=== PATIENT | female | born 1950 | race Caucasian/White ===

== ENCOUNTER 2016-11-03 09:17 | Outpatient (CLI) | payer BC ==
[2016-11-03 14:28] LABS: BASOPHILS # (AUTO) 0.1 10^3/uL (0.0-0.1); BASOPHILS % (AUTO) 0.7 %; EOSINOPHILS # (AUTO) 0.3 10^3/uL (0.0-0.7); EOSINOPHILS % (AUTO) 2.6 %; HCT - HEMATOCRIT 41.4 % (37.0-47.0); HGB - HEMOGLOBIN 12.9 g/dL (12.0-16.0); LYMPHOCYTES # (AUTO) 2.6 10^3/uL (1.5-3.5); LYMPHOCYTES % (AUTO) 22.5 %; MEAN CORPUSCULAR HEMOGLOBIN 23.2 pg (27.0-31.0); MEAN CORPUSCULAR HGB CONC 31.1 g/dL (32.0-36.0); MEAN CORPUSCULAR VOLUME 74.5 fL (81.0-99.0); MEAN PLATELET VOLUME 8.7 fL (7.9-10.8); MONOCYTES # (AUTO) 0.8 10^3/uL (0.0-1.0); MONOCYTES % (AUTO) 6.6 %; NEUTROPHILS # (AUTO) 7.7 10^3/uL (1.5-6.6); NEUTROPHILS % (AUTO) 67.6 %; RED BLOOD COUNT 5.56 10^6/uL (4.20-5.40); RED CELL DISTRIBUTION WIDTH 17.8 % (12.0-15.0); UNCORRECTED WHITE BLOOD COUNT 11.5 x10^3/uL; WHITE BLOOD COUNT 11.5 x10^3/uL (4.8-10.8)
[2016-11-03 14:48] LABS: ALBUMIN/GLOBULIN RATIO 1.1 (1.0-2.2); BILIRUBIN,TOTAL 0.4 mg/dL (0.2-1.0); CALCIUM 9.3 mg/dL (8.5-10.3); CREATININE 0.8 mg/dL (0.4-1.0); POTASSIUM 4.4 mmol/L (3.5-5.0); TOTAL PROTEIN 7.8 g/dL (6.7-8.2)
[2016-11-03 15:22] LABS: HEMOGLOBIN A1C 0.61 g/dL
== END 2016-11-03 09:18 | disposition home or self-care (01) ==
LOC: LAB.WCP 09:17
PROVIDERS: ATTEND Family Medicine
DX: E11.9 Type 2 diabetes mellitus without complications (principal); D47.3 Essential (hemorrhagic) thrombocythemia
CPT/HCPCS: 36415; 80053; 83036; 85025

== ENCOUNTER 2017-06-29 08:00 | Outpatient (CLI) | payer MEDICARE, BC ==
[2017-06-29 13:25] LABS: BASOPHILS # (AUTO) 0.1 10^3/uL (0.0-0.1); BASOPHILS % (AUTO) 0.7 %; EOSINOPHILS # (AUTO) 0.3 10^3/uL (0.0-0.7); EOSINOPHILS % (AUTO) 2.7 %; HGB - HEMOGLOBIN 11.6 g/dL (12.0-16.0); LYMPHOCYTES # (AUTO) 2.3 10^3/uL (1.5-3.5); LYMPHOCYTES % (AUTO) 20.3 %; MEAN CORPUSCULAR HEMOGLOBIN 21.1 pg (27.0-31.0); MEAN CORPUSCULAR HGB CONC 30.9 g/dL (32.0-36.0); MEAN CORPUSCULAR VOLUME 68.4 fL (81.0-99.0); MEAN PLATELET VOLUME 8.1 fL (7.9-10.8); MONOCYTES # (AUTO) 0.8 10^3/uL (0.0-1.0); MONOCYTES % (AUTO) 7.4 %; NEUTROPHILS # (AUTO) 7.8 10^3/uL (1.5-6.6); NEUTROPHILS % (AUTO) 68.9 %; PLT - PLATELET COUNT 385 10^3/uL (130-450); RED BLOOD COUNT 5.47 10^6/uL (4.20-5.40); RED CELL DISTRIBUTION WIDTH 19.8 % (12.0-15.0); WHITE BLOOD COUNT 11.3 x10^3/uL (4.8-10.8)
[2017-06-29 13:30] LABS: ALBUMIN 3.9 g/dL (3.2-5.5); ALKALINE PHOSPHATASE 82 IU/L (42-121); ALT ALANINE AMINOTRANSFERASE 18 IU/L (10-60); AST ASPARTATE AMINOTRANSFERASE 20 IU/L (10-42); BILIRUBIN,TOTAL 0.6 mg/dL (0.2-1.0); BUN - BLOOD UREA NITROGEN 11 mg/dL (6-20); CALCIUM 9.1 mg/dL (8.5-10.3); CARBON DIOXIDE - CO2 26 mmol/L (21-32); CHLORIDE 98 mmol/L (101-111); CHOL/HDL RATIO 4.3 (<4.4); CHOLESTEROL 173 mg/dL; CREATININE 0.7 mg/dL (0.4-1.0); GFR - MDRD 84 (>89); GLUCOSE 132 mg/dL (70-100); HDL CHOLESTEROL 40 mg/dL; LDL CHOLESTEROL,CALCULATED 90 mg/dL; LDL/HDL RATIO 2.3 (<4.4); SODIUM 134 mmol/L (135-145); TOTAL PROTEIN 7.7 g/dL (6.7-8.2); VLDL CHOLESTEROL 43 mg/dL
[2017-06-29 13:39] LABS: HB2 TOTAL 12.7 g/dL; HEMOGLOBIN A1C 0.65 g/dL; HEMOGLOBIN A1C % 6.8 % (4.6-6.2)
== END 2017-06-29 08:01 ==
LOC: LAB.WCP 08:00
PROVIDERS: ATTEND Family Medicine
DX: I10 Essential (primary) hypertension (principal); E78.5 Hyperlipidemia, unspecified; E11.9 Type 2 diabetes mellitus without complications
CPT/HCPCS: 36415; 80053; 80061; 82043; 83036; 83721; 84443; 85025

== ENCOUNTER 2017-07-13 10:01 | Outpatient (CLI) | payer MEDICARE, OTHER ==
--- NOTE | 2017-07-15 14:21 | DEXA Report ---
DEXA SCAN: 07/13/2017 CLINICAL INDICATION: Postmenopausal. TECHNIQUE: Dual energy x-ray absorptiometry (DXA) was performed on a Corimmun system. Regions measured are the AP spine, femoral neck, and, if needed, forearm. COMPARISON: None. In accordance with the International Society for Clinical Densitometry (ISCD) guidelines, data from previous exams may be reanalyzed using current recommendations and techniques. This is done to allow a more accurate basis for comparison with the current study. FINDINGS Data for the lumbar spine is as follows: REGION BMD (g/cm/cm) T-SCORE Z-SCORE L1 0.893 -2.0 -0.8 L2 0.899 -2.5 -1.3 L3 0.847 -2.9 -1.8 L4 0.852 -2.9 -1.7 L1-L4 0.871 -2.6 -1.4 NOTE: All evaluable vertebrae are used for classification. Data for the hip is as follows: REGION BMD (g/cm/cm) T-SCORE Z-SCORE Neck 0.537 -3.6 -2.4 TOTAL 0.730 -2.2 -1.3 NOTE: The femoral neck or total proximal femur, whichever is lowest, is used for classification. IMPRESSION WHO CLASSIFICATION BASED ON THE INTERNATIONAL REFERENCE STANDARD IS OSTEOPOROSIS. FRACTURE RISK IS HIGH. RECOMMENDATION: Patients with diagnosis of osteoporosis or osteopenia should have regular bone mineral density assessment. For those eligible for Medicare, routine testing is allowed once every 2 years. Testing frequency can be increased for patients who have rapidly progressing disease or for those who are receiving medical therapy to restore bone mass. COMMENT World Health Organization (WHO) definitions for osteoporosis and osteopenia: NORMAL BMD: T-score at 1.0 or higher, fracture risk is low. OSTEOPENIA BMD: T-score between 1.0 and -2.5, fracture risk is increased. OSTEOPOROSIS BMD: T-score at 2.5 or lower, fracture risk high. National Osteoporosis Foundation recommends: 1. Obtain adequate dietary calcium (at least 1200 mg per day) and vitamin D ( 400-800 international units per day). 2. Participate, as appropriate, in regular weightbearing and muscle- strengthening exercise. 3. Avoid tobacco use and reduce alcohol and caffeine intake. 4. For more detailed information see the website at www.NOF.org. TD: 07/13/2017 12:07 MTDD
== END 2017-07-13 10:02 | disposition home or self-care (01) ==
LOC: DI 10:01
PROVIDERS: ATTEND Family Medicine
DX: M81.0 Age-related osteoporosis without current pathological fracture (principal); Z78.0 Asymptomatic menopausal state
CPT/HCPCS: 77080

== ENCOUNTER 2017-07-16 09:29 | Outpatient (CLI) | payer MEDICARE, OTHER ==
--- NOTE | 2017-07-17 19:05 | Mammography Report ---
DIGITAL SCREENING MAMMOGRAM: 07/16/2017 TECHNIQUE: Bilateral digital CC and MLO projections. COMPARISON: 11/03/2015, 08/24/2014, 03/24/2013, and 10/24/2010. FINDINGS: There are scattered fibroglandular densities. There is no dominant mass, architectural distortion, suspicious microcalcifications, skin thickening, or significant interval change. IMPRESSION: NEGATIVE. BIRADS category: 1, negative. Suggest routine screening in 12 months. STANDARD QUALIFYING STATEMENTS 1. This examination was reviewed with the aid of Computed-Aided Detection (CAD). 2. A negative or benign imaging report should not delay biopsy if clinically suspicious findings are present. Consider surgical consultation if warranted. More than 5% of cancers are not identified by imaging. 3. Dense breasts may obscure an underlying neoplasm. cc: TEA GALVEZ, TD: 07/17/2017 18:23 cc: TEA GALVEZ
== END 2017-07-16 09:30 | disposition home or self-care (01) ==
LOC: DI.N 09:29
PROVIDERS: ATTEND Family Medicine
DX: Z12.31 Encounter for screening mammogram for malignant neoplasm of breast (principal)
CPT/HCPCS: 77067

== ENCOUNTER 2017-07-19 07:24 | Outpatient (CLI) | payer MEDICARE, OTHER ==
--- NOTE | 2017-07-19 11:19 | CT Report ---
EXAM CT LUNG SCREEN EXAM DATE: 07/19/2017 07:57 AM. HISTORY: 67-year-old patient with [id number] smoking history. Family history of lung cancer. COMPARISON: None. TECHNIQUE: CT examination of the entire thorax without contrast was performed using low-dose techniqu e. Thin section coronal, axial, sagittal and MIP axial images were obtained. In accordance with CT protocol optimization, one or more of the following dose reduction techniques w ere utilized for this exam: automated exposure control, adjustment of mA and/or KV based on patient s ize, or use of iterative reconstructive technique. FINDINGS: Nodules: Right upper lobe: Solid 4 x 6 mm (30/4), previously faint groundglass opacity. Subsolid 5 x 7 mm (41) , not seen previously. Sub-solid 4 x 6 mm (60) posterior, similar. Right middle lobe: None. Right lower lobe: None. Left upper lobe: 4 x 5 mm solid lingular (92). Left lower lobe: None. Emphysema: Minimal. Small biapical blebs. Pleura: Unremarkable. Thoracic Aorta: No aneurysm. Mild calcified plaques. Mediastinum: No adenopathy by size criteria. Normal heart size without pericardial effusion. Coronary calcifications: Mild. Other pulmonary findings: Mild bibasilar scarring and/or atelectasis. Other extrapulmonary findings: Kyphosis and mild degenerative changes of spine. IMPRESSION: Lung-RADS ASSESSMENT CATEGORY: 3 - Probably benign. Probability of malignancy: 1-2%. RECOMMENDATION: 6 month follow-up with LDCT per Lung-RADS guidelines. [facility] Referring Provider Line: [phone] SITE ID: [id number]
== END 2017-07-19 07:25 | disposition home or self-care (01) ==
LOC: DI 07:24
PROVIDERS: ATTEND Family Medicine
DX: Z12.2 Encounter for screening for malignant neoplasm of respiratory organs (principal); R91.8 Other nonspecific abnormal finding of lung field; F17.210 Nicotine dependence, cigarettes, uncomplicated; Z80.1 Family history of malignant neoplasm of trachea, bronchus and lung

== ENCOUNTER 2018-01-10 08:29 | Outpatient (CLI) | payer MEDICARE, OTHER | END 2018-01-10 08:30 | disposition critical access hospital (66) | LOC: EMS 08:29 | PROVIDERS: ATTEND Surgery | DX: R07.81 Pleurodynia (principal); R42 Dizziness and giddiness | CPT/HCPCS: A0425; A0429 ==

== ENCOUNTER 2018-01-10 08:37 | Emergency (ER) | payer MEDICARE, OTHER ==
--- NOTE | 2018-01-10 09:09 | ED Physician Documentation ---
PD HPI HEENT - Stated complaint Stated Complaint: WEAK/DIZZY - Chief complaint Chief Complaint: General - History obtained from History obtained from: Patient PD PAST MEDICAL HISTORY - Past Medical History Cardiovascular: Hypertension, High cholesterol Respiratory: COPD, Emphysema, Shortness of breath Endocrine/Autoimmune: None GI: GERD DIE BAKER: None : None HEENT: None Psych: None Musculoskeletal: None Derm: None - Past Surgical History Past Surgical History: Yes General: Appendectomy /DIE BAKER: Hysterectomy HEENT: Myringotomy (tubes), Cochlear implant, Tonsil/Adenoidectomy - Present Medications Home Medications: Ambulatory Orders Medication Instructions Recorded Confirmed Lisinopril/Hydrochlorothiazide 1 mg PO DAILY 07/29/12 04/09/15 [Lisinopril-Hctz 10-12.5 mg Tab] Rosuvastatin [Crestor] 10 mg ORAL DAILY 07/29/12 04/09/15 B Complex with Vitamin C 01/10/18 [B-Complex Plus Vitamin C] metFORMIN [Glucophage] 01/10/18 - Allergies Allergies/Adverse Reactions: Allergies Allergy/AdvReac Type Severity Reaction Status Date / Time No Known Drug Allergies Allergy Verified 01/10/18 08:44 - Social History Does the pt smoke?: Yes Smoking Status: Current every day smoker Does the pt drink ETOH?: Yes Does the pt have substance abuse?: No - Immunizations Immunizations are current?: Yes - POLST Patient has POLST: No Results - Vitals Vitals: Vital Signs - 24 hr 01/10/18 08:37 Temperature 36.2 C L Heart Rate 98 Respiratory 16 Rate Blood Pressure 123/81 H O2 Saturation 96 Oxygen O2 Source Room air
[2018-01-10 09:13] LABS: BASOPHILS % (AUTO) 0.3 %; EOSINOPHILS # (AUTO) 0.2 10^3/uL (0.0-0.7); EOSINOPHILS % (AUTO) 2.1 %; LYMPHOCYTES # (AUTO) 2.3 10^3/uL (1.5-3.5); LYMPHOCYTES % (AUTO) 19.6 %; MEAN CORPUSCULAR HEMOGLOBIN 19.4 pg (27.0-31.0); MEAN CORPUSCULAR HGB CONC 30.5 g/dL (32.0-36.0); MEAN CORPUSCULAR VOLUME 63.8 fL (81.0-99.0); MONOCYTES # (AUTO) 0.9 10^3/uL (0.0-1.0); NEUTROPHILS # (AUTO) 8.1 10^3/uL (1.5-6.6); PLT - PLATELET COUNT 412 10^3/uL (130-450); RED BLOOD COUNT 5.16 10^6/uL (4.20-5.40); WHITE BLOOD COUNT 11.5 x10^3/uL (4.8-10.8)
[2018-01-10 09:23] LABS: ALBUMIN 3.7 g/dL (3.2-5.5); BILIRUBIN,TOTAL 0.4 mg/dL (0.2-1.0); CALCIUM 8.5 mg/dL (8.5-10.3); CREATININE 0.8 mg/dL (0.4-1.0); TOTAL PROTEIN 7.4 g/dL (6.7-8.2)
[2018-01-10] MEDS ORDERED: ACETAMINOPHEN 325 MG TABLET PO STA (09:36)
[2018-01-10] MEDS ORDERED: KETOROLAC 60 MG/2 ML VIAL IVP STA (09:36)
[2018-01-10] MEDS ORDERED: SODIUM CHLORIDE 0.9% 1,000 ML IV ONE (09:36)
--- NOTE | 2018-01-10 09:37 | ED Physician Documentation ---
PD HPI ABD PAIN - Stated complaint Stated Complaint: WEAK/DIZZY - Chief complaint Chief Complaint: General - History obtained from History obtained from: Patient - History of Present Illness Timing - onset: Today Timing - details: Abrupt onset (she was walking in hospital cafeteria and had abrupt onset of cramping, spasm pain left flank and lateral abdomen, the pain was severe and she then felt lightheaded with it. She felt like she might faint. pain is some less up to ER but still present. WOrse with moving trunk and palpation.) Quality: Cramping, Aching, Pain Location: LUQ Radiation: Left flank Improved by: Laying still. No: Position Worsened by: Moving, Palpation. No: Breathing Associated symptoms: Nausea, Near syncope / syncope. No: Fever, Vomiting, Diarrhea, Chest pain, Dizzy, Loss of appetite Similar symptoms before: No diagnosis (has had some other acute spasm pains in torso and legs over the past few weeks, occur quickly and last an hour or so. The one today was the worst. No prior near syncope with them.) Recently seen: Not recently seen Review of Systems Constitutional: reports: Myalgias. denies: Fever, Chills, Fatigue Nose: denies: Rhinorrhea / runny nose, Congestion Throat: denies: Sore throat Cardiac: denies: Chest pain / pressure, Palpitations Respiratory: denies: Dyspnea, Cough GI: reports: Abdominal Pain, Nausea. denies: Vomiting, Constipation, Diarrhea, Bloody / black stool : denies: Dysuria, Frequency Skin: denies: Rash, Lesions Neurologic: denies: Focal weakness, Numbness, Altered mental status, Headache PD PAST MEDICAL HISTORY - Past Medical History Cardiovascular: Hypertension, High cholesterol Respiratory: COPD, Emphysema, Shortness of breath Endocrine/Autoimmune: None GI: GERD KENNEL ATTENDANT: None : None HEENT: None Psych: None Musculoskeletal: None Derm: None - Past Surgical History Past Surgical History: Yes General: Appendectomy /KENNEL ATTENDANT: Hysterectomy HEENT: Myringotomy (tubes), Cochlear implant, Tonsil/Adenoidectomy - Present Medications Home Medications: Ambulatory Orders Medication Instructions Recorded Confirmed Lisinopril/Hydrochlorothiazide 1 mg PO DAILY 07/29/12 04/09/15 [Lisinopril-Hctz 10-12.5 mg Tab] Rosuvastatin [Crestor] 10 mg ORAL DAILY 07/29/12 04/09/15 Albuterol Sulf [Ventolin Hfa PRN 01/10/18 Inhaler] B Complex with Vitamin C 01/10/18 [B-Complex Plus Vitamin C] Hydrocodone/Acetaminophen [[place] 1 each PO Q6H PRN #15 tablet 01/10/18 5-325 Tablet] Methocarbamol [Robaxin] 500 mg PO Q6H PRN #15 tablet 01/10/18 Naproxen 375 mg PO BID #20 tablet 01/10/18 Tiotropium [place] [Spiriva] 01/10/18 metFORMIN [Glucophage] 01/10/18 - Allergies Allergies/Adverse Reactions: Allergies Allergy/AdvReac Type Severity Reaction Status Date / Time No Known Drug Allergies Allergy Verified 01/10/18 08:44 - Social History Does the pt smoke?: Yes Smoking Status: Current every day smoker Does the pt drink ETOH?: Yes Does the pt have substance abuse?: No - Immunizations Immunizations are current?: Yes - POLST Patient has POLST: No PD ED PE NORMAL - Vitals Vital signs reviewed: Yes - General General: Alert and oriented X 3, Well developed/nourished, Other (appears in pain; holding left flank area) - HEENT HEENT: Pharynx benign - Neck Neck: Supple, no meningeal sign, No adenopathy - Cardiac Cardiac: RRR, No murmur - Respiratory Respiratory: Clear bilaterally - Abdomen Abdomen: Normal bowel sounds, Soft, Non distended, No organomegaly, Other (some tenderness left lateral abd and at left flank area to palpation and not really to percussion. ) - Female Female : Deferred - Rectal Rectal: Deferred - Back Back: No spinal TTP - Derm Derm: Normal color, Warm and dry, No rash - Extremities Extremities: No tenderness to palpate, Normal ROM s pain - Neuro Neuro: Alert and oriented X 3, No motor deficit, Normal speech Results - Vitals Vitals: Vital Signs - 24 hr 01/10/18 01/10/18 01/10/18 08:37 09:45 11:21 Temperature 36.2 C L 36.3 C L Heart Rate 98 96 97 Respiratory 16 16 20 Rate Blood Pressure 123/81 H 126/78 123/82 H O2 Saturation 96 95 96 Oxygen O2 Source Room air - EKG (time done) 08:52 Rate: Rate (enter#) (101) Rhythm: Sinus tachycardia [place]: Normal Intervals: Normal SD QRS: Normal Ischemia: Normal ST segments. No: ST elevation c/w ischemia, ST depression - Labs Labs: Laboratory Tests 01/10/18 01/10/18 01/10/18 09:00 09:00 09:00 WBC 11.5 H RBC 5.16 Hgb 10.0 L Hct 32.9 L MCV 63.8 L MCH 19.4 L MCHC 30.5 L RDW 20.0 H Plt Count 412 MPV 8.0 Neut # (Auto) 8.1 H Lymph # (Auto) 2.3 [place] # (Auto) 0.9 Eos # (Auto) 0.2 Baso # (Auto) 0.0 Absolute Nucleated RBC 0.01 Nucleated RBC % 0.0 Sodium 133 L Potassium 3.9 Chloride 102 Carbon Dioxide 24 Anion Gap 7.0 BUN 13 Creatinine 0.8 Estimated GFR (MDRD) 72 L Glucose 145 H Calcium 8.5 Total Bilirubin 0.4 AST 22 ALT 17 Alkaline Phosphatase 70 Total Creatine Kinase Troponin I < 0.04 Total Protein 7.4 Albumin 3.7 Globulin 3.7 Albumin/Globulin Ratio 1.0 Lipase 35 Urine Color Urine Clarity Urine pH Ur Specific [place] Urine Protein Urine Glucose (UA) Urine Ketones Urine Occult Blood Urine Nitrite Urine Bilirubin Urine Urobilinogen Ur Leukocyte Esterase Ur Microscopic Review Urine Culture Comments 01/10/18 01/10/18 09:00 10:18 WBC RBC Hgb Hct MCV MCH MCHC RDW Plt Count MPV Neut # (Auto) Lymph # (Auto) [place] # (Auto) Eos # (Auto) Baso # (Auto) Absolute Nucleated RBC Nucleated RBC % Sodium Potassium Chloride Carbon Dioxide Anion Gap BUN Creatinine Estimated GFR (MDRD) Glucose Calcium Total Bilirubin AST ALT Alkaline Phosphatase Total Creatine Kinase 71 Troponin I Total Protein Albumin Globulin Albumin/Globulin Ratio Lipase Urine Color LIGHT YELLOW Urine Clarity CLEAR Urine pH 6.5 Ur Specific [place] 1.010 Urine Protein NEGATIVE Urine Glucose (UA) NEGATIVE Urine Ketones NEGATIVE Urine Occult Blood NEGATIVE Urine Nitrite NEGATIVE Urine Bilirubin NEGATIVE Urine Urobilinogen 0.2 (NORMAL) Ur Leukocyte Esterase NEGATIVE Ur Microscopic Review NOT INDICATED Urine Culture Comments NOT INDICATED - Rads (name of study) abd pelvic CT with contrast Radiology: Prelim report reviewed (no acute process - see radiologist report) chest xray Radiology: Prelim report reviewed, EMP read contemporaneously (normal) PD MEDICAL DECISION MAKING - ED course Complexity details: reviewed results (CT and labs are normal. No signs of stones, vascular process, intr-abd process. Presume muscle spasms and she has had them in other areas, including legs. Consider statin effect? Lytes are good and she seems hydrated. ), re-evaluated patient (pain improved with meds. But was trending down even prior to that. ), considered differential (initial concern is for vascular process, such as aneurysmal leak or dissection. Consider kidney stone, divertic, perforation. Less likely, but could be musculoskeletal (well, muscular anyway). ), d/w patient Departure - Departure Disposition: 01 Home, Self Care Clinical Impression: Acute flank pain, Muscle spasm Condition: Stable Record reviewed to determine appropriate education?: Yes Instructions: ED Flank Pain Uncertain Cause Follow-Up: Rasta Moraes DO [Primary Care Provider] - Prescriptions: Hydrocodone/Acetaminophen [[place] 5-325 Tablet] 1 each PO Q6H PRN #15 tablet PRN Reason: Pain Methocarbamol [Robaxin] 500 mg PO Q6H PRN #15 tablet PRN Reason: Spasms Naproxen 375 mg PO BID #20 tablet Comments: Your blood tests EKG and CT scan appear normal without any obvious acute serious problem. I presume your pain is muscle spasms. This sometimes will correlate or be caused by the cholesterol medicines I would have you stop your Crestor (statin) disease medication for at least a month. Stay well-hydrated. Use some naproxen twice daily for the next 7-10 days. Add Robaxin and hydrocodone if needed for pain episodes. Follow-up with your primary care next week, call for an appointment. Discharge Date/Time: 01/10/18 11:45
[2018-01-10] MEDS ORDERED: IOVERSOL 320 100 ML VIAL IVP ONE ×2 (09:57→10:40)
--- NOTE | 2018-01-10 10:17 | XRAY Report ---
Reason: cp Procedure Date: 01/10/2018 Accession Number: [id number] / [id number] Procedure: XR - Chest 1 View X-Ray CPT Code: 81342 FULL RESULT: EXAM: CHEST RADIOGRAPHY EXAM DATE: 01/10/2018 09:41 AM. CLINICAL HISTORY: Chest pain. COMPARISON: None. TECHNIQUE: 1 view. FINDINGS: Lungs/Pleura: No focal opacities evident. No pleural effusion. No pneumothorax. Mediastinum: Within exam limitations, the cardiomediastinal contour is normal with the exception of subtle aortic arch calcifications. Other: None. IMPRESSION: No acute cardiopulmonary abnormalities detected. [facility]
[2018-01-10 10:47] LABS: BILIRUBIN,URINE NEGATIVE (NEGATIVE); CLARITY,URINE CLEAR (CLEAR); GLUCOSE, URINE (UA) NEGATIVE (NEGATIVE); KETONES,URINE (UA) NEGATIVE (NEGATIVE); LEUKOCYTE ESTERASE, URINE NEGATIVE (NEGATIVE); NITRITE,URINE NEGATIVE (NEGATIVE); OCCULT BLOOD,URINE NEGATIVE (NEGATIVE); PH,URINE 6.5 PH (5.0-7.5); PROTEIN,URINE NEGATIVE (NEGATIVE); UROBILINOGEN,URINE 0.2 (NORMAL) E.U./dL (NORMAL)
--- NOTE | 2018-01-10 10:48 | CT Report ---
Reason: right flank and abd pain onset today Procedure Date: 01/10/2018 Accession Number: [id number] / [id number] Procedure: CT - Abdomen/Pelvis W/ CPT Code: FULL RESULT: EXAM: CT ABDOMEN AND PELVIS EXAM DATE: 01/10/2018 10:18 AM. CLINICAL HISTORY: Right flank and abd pain onset today. COMPARISONS: None. TECHNIQUE: Routine helical CT imaging was performed through the abdomen and pelvis. IV contrast: ISOVUE 320 100mL. Enteric contrast: No. Reconstructions: Coronal and sagittal. In accordance with CT protocol optimization, one or more of the following dose reduction techniques were utilized for this exam: automated exposure control, adjustment of mA and/or KV based on patient size, or use of iterative reconstructive technique. FINDINGS: Lung Bases: Unremarkable. Liver: There is diffuse slight low density without lobular contour changes are masses. Gallbladder/Bile Ducts: Unremarkable. Spleen: Normal. Pancreas: Normal. Adrenal Glands: There is slight thick body of the left adrenal grand with low density, 1.1 cm. Right adrenal gland is normal. Kidneys: There is a left renal lower pole peripelvic simple cysts, 1.9 cm. No stone, masses or hydronephrosis. Peritoneal Cavity/Bowel: No free fluid, free air or adenopathy. No masses or acute inflammatory process. The appendix is not visualized and no mass or inflammatory change in the right low abdomen visualized. Pelvic Organs: The bladder and visualized pelvic organs are within normal limits. Vasculature: No aneurysms or other significant abnormality. Bones: No significant abnormality. Other: No hernia seen. IMPRESSION: 1. Negative for renal stone, renal mass or hydronephrosis. 2. The appendix is not visualized and no mass or inflammatory change in the right low abdomen visualized. Negative for bowel obstruction or inflammatory changes. 3. Mild hepatic steatosis. 4. Slight thickening left adrenal body with low density, likely a benign process. [facility]
[2018-01-10 11:22] VITALS: BP 123/82
== END 2018-01-10 11:45 | disposition home or self-care (01) ==
LOC: ED 08:37
DX: R10.32 Left lower quadrant pain (principal); M62.838 Other muscle spasm; I10 Essential (primary) hypertension; E78.00 Pure hypercholesterolemia, unspecified; R00.0 Tachycardia, unspecified; F17.200 Nicotine dependence, unspecified, uncomplicated
CPT/HCPCS: 36415; 71045; 74177; 80053; 81003; 82550; 83690; 84484; 85025; 93005; 96361; 96374; 99283; 99284; A9270; Q9967; 81001; 87086

== ENCOUNTER 2018-01-28 07:25 | Outpatient (CLI) | payer MEDICARE, OTHER ==
--- NOTE | 2018-01-28 08:42 | CT Report ---
Reason: PULMONARY NODULE Procedure Date: 01/28/2018 Accession Number: [id number] / [id number] Procedure: CT - Chest W/O CPT Code: FULL RESULT: EXAM: CT CHEST WITHOUT CONTRAST EXAM DATE: 01/28/2018 07:47 AM. CLINICAL HISTORY: Pulmonary nodule. COMPARISONS: 07/19/2017, 03/24/2013. TECHNIQUE: Routine helical CT imaging was performed through the chest. IV contrast: None. Reconstructions: Coronal and sagittal. In accordance with CT protocol optimization, one or more of the following dose reduction techniques were utilized for this exam: automated exposure control, adjustment of mA and/or KV based on patient size, or use of iterative reconstructive technique. FINDINGS: Lungs/Pleura: No infiltrates, effusion or extraventilatory air. Nodules: Right upper lobe: Stable solid 4 x 5 mm nodule reference image 15. Stable focal 5 mm groundglass opacity posterior right upper lobe reference image 21. Stable (compared to 07/19/2017) 9 x 8 x 9 mm semisolid nodule abutting the minor fissure, measuring 1-2 mm larger in each dimension compared to images of 2013. Right middle lobe: None. Right lower lobe: None. Left upper lobe/lingula: Stable 5 mm nodular opacity abutting the pericardial pleura reference image 36. Left lower lobe: None. Mediastinum: Normal. No adenopathy or masses. The heart and great vessels are normal. Mild coronary artery calcium left anterior descending coronary artery. Bones: Unremarkable. Visualized Abdomen: Unremarkable. Other: None. IMPRESSION: Stable pulmonary findings as described compared to most recent exam of 07/19/2017. Recommend continued follow-up regarding lung-RADS guidelines with follow-up CT in 6 months. [facility]
== END 2018-01-28 07:26 | disposition home or self-care (01) ==
LOC: DI 07:25
PROVIDERS: ATTEND Family Medicine
DX: R91.8 Other nonspecific abnormal finding of lung field (principal)
CPT/HCPCS: 71250

== ENCOUNTER 2018-03-08 08:55 | Outpatient (CLI) | payer MEDICARE, OTHER ==
[2018-03-08] MEDS ORDERED: AMINOPHYLLINE 250 MG/10 ML VIAL IV ONE (08:56)
[2018-03-08] MEDS ORDERED: REGADENOSON 0.4 MG/5 ML SYRINGE IVP ONE ×2 (11:18→14:10)
--- NOTE | 2018-03-08 12:35 | CARDIAC PROCEDURE NOTE ---
DATE OF SERVICE: 03/08/2018 Physician: Lina Peters MD, [facility] INDICATION: Chest pain. CARDIAC RISK FACTORS: Postmenopausal status, hypertension, diabetes, elevated cholesterol, heavy current cigarette smoker, obesity. PROCEDURE: After signing informed consent, the patient underwent a Lexiscan pharmaceutical stress test with nuclear myocardial imaging. Resting heart rate: 103. Peak heart rate: 126. Resting blood pressure: 132/68. Peak blood pressure: 160/78. The patient underwent Lexiscan injection. She developed shortness of breath and had audible wheezing. Oxygen saturation at this time was 97% on room air. She required Aminophylline 50 mg IV bolus and symptoms stabilized in 2-3 minutes. As she developed shortness of breath, she also complained of "right lateral chest wall spasm." This came and went about three times in recovery, lasting about one minute each. RESTING EKG: Normal sinus rhythm, PACs, left atrial enlargement, right IVCD, early R/S transition. EKG AT [place]: No new ST segment or T-wave changes. SUMMARY 1. Abnormal resting EKG, suggesting cor pulmonale. 2. Shortness of breath and wheezing following Lexiscan injection, reversed with Aminophylline. 3. No ischemic changes by EKG criteria on this pharmaceutical stress test. 4. Nuclear images reported separately. cc: Rasta Moraes DO TD: 03/08/2018 11:53 MTDD
--- NOTE | 2018-03-08 14:38 | Nuclear Medicine Report ---
Reason: CHEST PAIN, AODM, HTN Procedure Date: 03/08/2018 Accession Number: [id number] / [id number] Procedure: NM - Myocardial Perfusion STR/RST CPT Code: FULL RESULT: EXAM: SINGLE-ISOTOPE PHARMACOLOGICAL STRESS TEST WITH REGADENOSON. SINGLE-ISOTOPE AND ONE-DAY REST/STRESS MYOCARDIAL PERFUSION SCANS WITH TOMOGRAPHIC IMAGING, QUANTITATIVE ANALYSIS, WALL MOTION ANALYSIS AND CALCULATION OF EJECTION FRACTION. EXAM DATE: 03/08/2018 02:12 PM. CLINICAL HISTORY: CHEST PAIN, AODM, HTN. COMPARISON: None available. TECHNIQUE: After the intravenous administration of 10.2 mCi of Tc-99m sestamibi, a rest myocardial perfusion scan was done with tomography. Motion correction was applied when appropriate. After an appropriate delay, pharmacological stress was performed with the infusion of 0.4 mg regadenoson per protocol. According to protocol, 42.4 mCi of Tc-99m sestamibi was injected for stress myocardial perfusion scan. Motion correction was applied when appropriate. Gated tomographic images were obtained for wall motion analysis and computation of left ventricular ejection fraction. FINDINGS: On visual analysis, no significant fixed or reversible perfusion defects are evident. Computer analysis. Summed stress score 3 Summed rest score 0 Summed difference score 3 Wall motion analysis demonstrates no focal wall motion abnormality. The left ventricular end-diastolic volume is 41 cc. The left ventricular end-systolic volume is 1 cc. The left ventricular ejection fraction is calculated to be 97%. IMPRESSION: 1. On visual analysis, no scintigraphic findings to indicate myocardial ischemia. Negative for infarct. 2. Left ventricular ejection fraction of 97% (presumably an overestimate). 3. Normal segmental and global wall motion. 4. Normal left ventricular cavity size, no change with stress. 5. Based on computer analysis, normal study with mild ischemia. [facility]
== END 2018-03-08 08:56 | disposition home or self-care (01) ==
LOC: DI 08:55
PROVIDERS: ATTEND Family Medicine
DX: I25.9 Chronic ischemic heart disease, unspecified (principal); R07.9 Chest pain, unspecified; I10 Essential (primary) hypertension; E78.5 Hyperlipidemia, unspecified; E11.9 Type 2 diabetes mellitus without complications; F17.210 Nicotine dependence, cigarettes, uncomplicated
CPT/HCPCS: 78452; 93017; A9500; J2785

== ENCOUNTER 2018-06-28 09:59 | Outpatient (CLI) | payer MEDICARE, OTHER ==
[2018-06-28 12:43] LABS: BASOPHILS # (AUTO) 0.1 10^3/uL (0.0-0.1); BASOPHILS % (AUTO) 0.6 %; EOSINOPHILS # (AUTO) 0.3 10^3/uL (0.0-0.7); EOSINOPHILS % (AUTO) 2.1 %; LYMPHOCYTES # (AUTO) 2.3 10^3/uL (1.5-3.5); LYMPHOCYTES % (AUTO) 17.7 %; MEAN CORPUSCULAR HEMOGLOBIN 18.2 pg (27.0-31.0); MEAN CORPUSCULAR HGB CONC 29.3 g/dL (32.0-36.0); MEAN PLATELET VOLUME 8.8 fL (7.9-10.8); MONOCYTES # (AUTO) 0.9 10^3/uL (0.0-1.0); MONOCYTES % (AUTO) 6.8 %; NEUTROPHILS # (AUTO) 9.3 10^3/uL (1.5-6.6); NEUTROPHILS % (AUTO) 72.8 %; PLT - PLATELET COUNT 487 10^3/uL (130-450); RED BLOOD COUNT 5.48 10^6/uL (4.20-5.40); RED CELL DISTRIBUTION WIDTH 20.4 % (12.0-15.0); WHITE BLOOD COUNT 12.8 x10^3/uL (4.8-10.8)
[2018-06-28 13:11] LABS: PLATELET ESTIMATE, MANUAL INCREASED (>450,000) (NORMAL)
[2018-06-28 13:23] LABS: ALBUMIN 3.9 g/dL (3.2-5.5); ALKALINE PHOSPHATASE 74 IU/L (42-121); ALT ALANINE AMINOTRANSFERASE 16 IU/L (10-60); AST ASPARTATE AMINOTRANSFERASE 19 IU/L (10-42); BILIRUBIN,TOTAL 0.5 mg/dL (0.2-1.0); BUN - BLOOD UREA NITROGEN 15 mg/dL (6-20); CALCIUM 9.2 mg/dL (8.5-10.3); CARBON DIOXIDE - CO2 27 mmol/L (21-32); CHLORIDE 98 mmol/L (101-111); CHOL/HDL RATIO 3.5 (<4.4); CHOLESTEROL 141 mg/dL; CREATININE 0.7 mg/dL (0.4-1.0); GFR - MDRD 84 (>89); GLUCOSE 159 mg/dL (70-100); HDL CHOLESTEROL 40 mg/dL; LDL CHOLESTEROL,CALCULATED 71 mg/dL; LDL/HDL RATIO 1.8 (<4.4); SODIUM 136 mmol/L (135-145); TOTAL PROTEIN 7.9 g/dL (6.7-8.2); VLDL CHOLESTEROL 30 mg/dL
[2018-06-28 13:37] LABS: CREATININE,URINE 201.8 mg/dL; MICROALBUMIN,URINE 0.6 mg/dL (0-300.0)
[2018-06-28 14:33] LABS: HB2 TOTAL 10.5 g/dL; HEMOGLOBIN A1C 0.71 g/dL; HEMOGLOBIN A1C % 8.3 % (4.6-6.2)
== END 2018-06-28 10:00 | disposition home or self-care (01) ==
LOC: LAB.WCP 09:59
PROVIDERS: ATTEND Family Medicine
DX: E11.9 Type 2 diabetes mellitus without complications (principal); I10 Essential (primary) hypertension; D50.9 Iron deficiency anemia, unspecified; J44.9 Chronic obstructive pulmonary disease, unspecified
CPT/HCPCS: 36415; 80053; 80061; 82043; 82570; 83036; 83721; 84443; 85025

== ENCOUNTER 2019-03-18 08:23 | Outpatient (CLI) | payer MEDICARE, OTHER ==
[2019-03-18 12:34] LABS: BASOPHILS # (AUTO) 0.1 10^3/uL (0.0-0.1); BASOPHILS % (AUTO) 0.7 %; EOSINOPHILS # (AUTO) 0.3 10^3/uL (0.0-0.7); EOSINOPHILS % (AUTO) 2.1 %; HGB - HEMOGLOBIN 8.4 g/dL (12.0-16.0); LYMPHOCYTES # (AUTO) 2.4 10^3/uL (1.5-3.5); LYMPHOCYTES % (AUTO) 17.1 %; MEAN CORPUSCULAR HEMOGLOBIN 15.9 pg (27.0-31.0); MEAN CORPUSCULAR HGB CONC 25.1 g/dL (32.0-36.0); MEAN CORPUSCULAR VOLUME 63.1 fL (81.0-99.0); MEAN PLATELET VOLUME 9.4 fL (7.9-10.8); MONOCYTES # (AUTO) 1.1 10^3/uL (0.0-1.0); MONOCYTES % (AUTO) 7.7 %; NEUTROPHILS # (AUTO) 10.1 10^3/uL (1.5-6.6); NEUTROPHILS % (AUTO) 71.6 %; PLT - PLATELET COUNT 571 10^3/uL (130-450); RED BLOOD COUNT 5.29 10^6/uL (4.20-5.40); RED CELL DISTRIBUTION WIDTH 22.1 % (12.0-15.0); WHITE BLOOD COUNT 14.1 x10^3/uL (4.8-10.8)
[2019-03-18 12:51] LABS: PLATELET ESTIMATE, MANUAL INCREASED (>450,000) (NORMAL); PLATELET MORPHOLOGY 1+ LARGE PLATELETS (NORMAL)
[2019-03-18 13:11] LABS: HB2 TOTAL 8.3 g/dL; HEMOGLOBIN A1C 0.44 g/dL
[2019-03-18 14:34] LABS: ALBUMIN 3.6 g/dL (3.2-5.5); ALBUMIN/GLOBULIN RATIO 0.8 (1.0-2.2); BILIRUBIN,TOTAL 0.7 mg/dL (0.2-1.0); CALCIUM 8.9 mg/dL (8.5-10.3); CREATININE 0.7 mg/dL (0.4-1.0); TOTAL PROTEIN 7.9 g/dL (6.7-8.2)
[2019-03-18 14:44] LABS: FERRITIN 4.9 ng/mL (11.0-306.8)
== END 2019-03-18 23:59 | disposition home or self-care (01) ==
LOC: LAB.WCP 08:23
PROVIDERS: ATTEND Family Medicine
DX: E11.9 Type 2 diabetes mellitus without complications (principal); D50.9 Iron deficiency anemia, unspecified
CPT/HCPCS: 36415; 80053; 82607; 82728; 82746; 83036; 83540; 84466; 85025

== ENCOUNTER 2019-04-05 09:24 | Outpatient (CLI) | payer MEDICARE, OTHER ==
[~2019-04-05 09:24] MED LIST: ALBUTEROL NEB 2.5 MG/3 ML INH SCH
== END 2019-04-05 09:25 | disposition home or self-care (01) ==
LOC: RT 09:24
PROVIDERS: ATTEND Nurse Practitioner Family
DX: J44.9 Chronic obstructive pulmonary disease, unspecified (principal)
CPT/HCPCS: 94060; 94729

== ENCOUNTER 2019-04-09 07:49 | Day surgery (SDC) | payer MEDICARE, OTHER ==
[2019-04-09] MEDS ORDERED: LACTATED RINGERS 1,000 ML IV ONE (08:35)
--- NOTE | 2019-04-09 08:37 | ANESTHESIA ---
Pre-Anesthesia VS, & Labs - Diagnosis positive FIT test - Procedure colonoscopy Vital Signs: Temp Pulse Resp BP Pulse Ox 37 C 121 H 18 140/91 H 97 04/09/19 08:06 04/09/19 08:06 04/09/19 08:06 04/09/19 08:06 04/09/19 08:06 Height 5 ft 1.5 in Weight (kg) 76 kg Body Mass Index 31.1 - NPO >8 hours Last Fluid Intake: 4oz black coffee 0600 - Is Patient ?: No Home Medications and Allergies Home Medications: Ambulatory Orders Alendronate Sodium 70 mg PO OAW 04/01/19 Aspirin [Aspirin EC] 81 mg PO DAILY 04/01/19 Atorvastatin [Lipitor] 10 mg PO DAILY 04/01/19 Biotin 5,000 mcg SL DAILY 04/01/19 Glimepiride 2 mg PO QDBREAKFAST 04/01/19 Glucos Sul 2Kcl/MSM/Chond/C/Mn [Glucosamine Chondroitin Cap] 2 each PO DAILY 04/01/19 Multivitamin [Multiple Vitamins] 1 each PO DAILY 04/01/19 Lisinopril/Hydrochlorothiazide [Lisinopril-Hctz 10-12.5 mg Tab] 0.5 tab PO DAILY 07/29/12 Albuterol Sulf [Ventolin Hfa Inhaler] 2 puffs INH Q4H PRN 01/10/18 B-Complex with Vitamin C [B-Complex Plus Vitamin C] 1 tab PO DAILY 01/10/18 Tiotropium [place] [Spiriva] 1 cap INH DAILY 01/10/18 metFORMIN [Glucophage] 500 mg PO BID 01/10/18 Alendronate Sodium 70 mg PO OAW 04/01/19 Aspirin [Aspirin EC] 81 mg PO DAILY 04/01/19 Atorvastatin [Lipitor] 10 mg PO DAILY 04/01/19 Biotin 5,000 mcg SL DAILY 04/01/19 Glimepiride 2 mg PO QDBREAKFAST 04/01/19 Glucos Sul 2Kcl/MSM/Chond/C/Mn [Glucosamine Chondroitin Cap] 2 each PO DAILY 04/01/19 Multivitamin [Multiple Vitamins] 1 each PO DAILY 04/01/19 Allergies/Adverse Reactions: Allergies Allergy/AdvReac Type Severity Reaction Status Date / Time No Known Drug Allergies Allergy Verified 01/10/18 08:44 Anes History & Medical History - Anesthetic History Anesthesia Complications: reports: No previous complications Family history of Anesthesia Complications: Denies Family history of Malignant Hyperthermia: Denies - Medical History Cardiovascular: reports: Hypertension, High cholesterol Pulmonary: reports: COPD, Emphysema, Shortness of breath Gastrointestinal: reports: GERD, Other Urinary: reports: Frequency Musculoskeletal: reports: Osteoporosis Endocrine/Autoimmune: reports: Type 2 diabetes Blood Disorders: reports: None Skin: reports: None Smoking Status: Current every day smoker - Surgical History General: Cholecystectomy, Appendectomy, Colonoscopy Eyes Ears Nose Throat (EENT): Myringotomy (tubes), Tonsil/Adenoidectomy Gynecologic: Hysterectomy Exam General: Alert, Oriented x3, Cooperative Dental: Dentures full Upper, Dentures full Lower Mouth Openin Fingerbreadth Neck Mobility: Normal Mallampati classification: II Thyromental Distance: 4-6 cm Respiratory: Lungs clear, Normal breath sounds, No respiratory distress, Decreased breath sounds (B bases) Cardiovascular: Regular rate (100ish, regular, RN reports 120+ on admit) Neurological: Normal speech Mental/Cognitive Status: Alert/Oriented X3, Normal for patient Cognitive Status: Within normal limits Plan Anesthesia Type: MAC Consent for Procedure(s) Verified and Reviewed: Yes Code Status: Attempt Resuscitation ASA classification: 2-Mild systemic disease Is this case an emergency?: No
[2019-04-09 10:34] VITALS: BP 110/66
== END 2019-04-09 07:50 | disposition home or self-care (01) ==
LOC: SDS 07:49
PROVIDERS: ATTEND Surgery
PROC: 0DBL8ZZ Excision of Transverse Colon, Via Natural or Artificial Opening Endoscopic (ICD-10-PCS; principal; 2019-04-09 09:00)
DX: D12.3 Benign neoplasm of transverse colon (principal); K57.30 Diverticulosis of large intestine without perforation or abscess without bleeding; K62.89 Other specified diseases of anus and rectum; K64.4 Residual hemorrhoidal skin tags; J43.9 Emphysema, unspecified; F17.210 Nicotine dependence, cigarettes, uncomplicated; E11.9 Type 2 diabetes mellitus without complications; I10 Essential (primary) hypertension; Z87.898 Personal history of other specified conditions; Z79.84 Long term (current) use of oral hypoglycemic drugs; Z79.899 Other long term (current) drug therapy
CPT/HCPCS: 45380; J7120

== ENCOUNTER 2019-04-21 08:00 | Outpatient (CLI) | payer MEDICARE, OTHER ==
[2019-04-21 08:22] LABS: ABNORMAL LYMPHS % (MANUAL) 0 %
[2019-04-21 11:45] LABS: BASOPHILS % (AUTO) 0.6 %; EOSINOPHILS % (AUTO) 1.7 %; HGB - HEMOGLOBIN 8.2 g/dL (12.0-16.0); MEAN CORPUSCULAR HEMOGLOBIN 14.7 pg (27.0-31.0); MEAN CORPUSCULAR HGB CONC 23.9 g/dL (32.0-36.0); MEAN CORPUSCULAR VOLUME 61.5 fL (81.0-99.0); MEAN PLATELET VOLUME 9.3 fL (7.9-10.8); MONOCYTES % (AUTO) 7.7 %; PLT - PLATELET COUNT 549 10^3/uL (130-450); RED BLOOD COUNT 5.58 10^6/uL (4.20-5.40); RED CELL DISTRIBUTION WIDTH 22.2 % (12.0-15.0); WHITE BLOOD COUNT 16.1 x10^3/uL (4.8-10.8)
[2019-04-21 12:34] LABS: BAND NEUTROPHILS % (MANUAL) 1 %; EOSINOPHILS # (MANUAL) 0.2 10^3/uL (0-0.7); LYMPHOCYTES # (MANUAL) 2.7 10^3/uL (1.5-3.5); LYMPHOCYTES % (MANUAL) 17 %; MONOCYTES # (MANUAL) 0.8 10^3/uL (0.0-1.0)
[2019-04-21 12:36] LABS: DIFFERENTIAL COMMENT MANUAL DIFFERENTIAL; PLATELET ESTIMATE, MANUAL INCREASED (>450,000) (NORMAL); PLATELET MORPHOLOGY NORMAL APPEARANCE (NORMAL)
[2019-04-21 12:47] LABS: CREATININE 0.7 mg/dL (0.4-1.0)
[2019-04-21 12:49] LABS: FERRITIN 4.5 ng/mL (11.0-306.8)
[2019-04-21 12:52] LABS: % IRON SATURATION 3 % (20-50); IRON 19 ug/dL (28-170); TOTAL IRON BINDING CAPACITY 633 ug/dL (250-450); TRANSFERRIN 452 mg/dL (192-382)
== END 2019-04-21 23:59 | disposition home or self-care (01) ==
LOC: LAB.WCP 08:00
PROVIDERS: ATTEND Family Medicine
DX: D50.9 Iron deficiency anemia, unspecified (principal); D72.829 Elevated white blood cell count, unspecified; J98.4 Other disorders of lung
CPT/HCPCS: 36415; 82565; 82607; 82728; 83540; 84466; 85025

== ENCOUNTER 2019-04-28 07:12 | Outpatient (CLI) | payer MEDICARE, OTHER ==
[2019-04-28] MEDS ORDERED: IOVERSOL 320 100 ML VIAL IVP ONE ×2 (07:21→07:54)
--- NOTE | 2019-04-29 09:27 | CT Report ---
Reason: PULMONARY NODULE Procedure Date: 04/28/2019 Accession Number: [id number] / [id number] Procedure: CT - CHEST W CPT Code: Final Report FULL RESULT: EXAM: CT CHEST EXAM DATE: 04/28/2019 07:46 AM. CLINICAL HISTORY: Follow-up pulmonary nodules. COMPARISONS: Chest CT from 01/28/2018, 07/19/2017. TECHNIQUE: Routine helical CT imaging was performed through the chest. IV contrast: 80 cc Optiray 320. Reconstructions: Coronal and sagittal. In accordance with CT protocol optimization, one or more of the following dose reduction techniques were utilized for this exam: automated exposure control, adjustment of mA and/or KV based on patient size, or use of iterative reconstructive technique. FINDINGS: Lungs/Pleura: Multiple pulmonary nodules and opacities are present, as follows: 1. A 6 mm groundglass nodule in the apical segment of the right upper lobe (series 4, image 29) is not definitely appreciated on prior examinations. 2. A 4 mm groundglass nodule in the apical posterior segment of the left upper lobe (series 4, image 34) has not significantly changed since 07/19/2017. 3. A 7 x 5 mm spiculated nodule in the anterior segment of the right upper lobe (series 4, image 52) appears minimally increased in size and density from prior examinations. It previously measured 6 x 4 mm on 07/19/2017. 4. Subtle 7 mm focus of groundglass opacity in the posterior segment of the right upper lobe (series 4, image 73) previously measured 5 mm. 5. A 9 x 7 mm focus of subsolid opacity in the posterior segment of the right upper lobe (series 4, image 83) is similar to 8 x 7 mm on prior examination. 6. A 2 mm nodule in the posterior segment of the right upper lobe (series 4, image 88) has not significantly changed. 7. A 13 x 11 mm focus of subsolid opacity in the posterior segment of the right upper lobe (series 4, image 119) appears slightly increased from 11 x 9 mm on the 07/19/2017 examination. 8. A 6 x 4 mm nodule along the left major fissure (series 4, image 161) is increased from 4 x 2 mm on the 07/19/2017 examination. It may represent a lymph node given its location and configuration. 9. A 2 mm nodule in the posterior basilar segment of the left lower lobe (series 4, image 193) appears new. Small area of consolidation in the inferior segment lingula has not significantly changed and is most compatible with parenchymal scarring. Mild paraseptal emphysema demonstrated in the lung apices. Several scattered emphysematous blebs are present elsewhere. No pleural effusion. Mediastinum: Heart size is within normal limits. There is coronary artery calcification. No pericardial effusion. No mediastinal or hilar adenopathy. Thoracic aorta demonstrates moderate atherosclerotic calcification. No thoracic aortic aneurysm. Bones: Minimal T7 compression fracture has not significantly changed. No suspicious osseous lesion. Visualized Abdomen: There is a subcentimeter hypoattenuating focus in hepatic segment 4B which is too small to characterize but has not significantly changed. There is diverticulosis of the proximal descending colon. Remainder of the visualized upper abdomen is unremarkable. Other: None. IMPRESSION: 1. Multiple pulmonary nodules and opacities are present. This includes a spiculated right upper lobe nodule (nodule 3), which appears slightly increased in size and density compared to the 07/19/2017 examination. The appearance and behavior raise concern for indolent neoplasm, such as adenocarcinoma. Further evaluation with PET/CT and/or biopsy is recommended. 2. Several additional nodules and opacities are new or increased in size (nodules 1, 3, 4, 7-9). The morphology of these nodules is not as suspicious as the spiculated right upper lobe nodule. However, the subsolid nodules in the right upper lobe (nodules 5 and 7) could represent indolent neoplasm, such as adenocarcinoma in-situ. Although these technically do not meet criteria for PET/CT evaluation (no sizable solid component), if PET is performed for evaluation of the spiculated right upper lobe nodule, these can also be further evaluated at that time. 3. Mild emphysema. RADIA
== END 2019-04-28 07:13 | disposition home or self-care (01) ==
LOC: DI 07:12
PROVIDERS: ATTEND Family Medicine
DX: R91.8 Other nonspecific abnormal finding of lung field (principal); J43.9 Emphysema, unspecified
CPT/HCPCS: 71260; Q9967

== ENCOUNTER 2020-05-26 08:00 | Outpatient (CLI) | payer MEDICARE, OTHER ==
[2020-05-26 08:49] LABS: ABNORMAL LYMPHS % (MANUAL) 0 %; BAND NEUTROPHILS % (MANUAL) 0 %
[2020-05-26 12:05] LABS: BASOPHILS % (AUTO) 0.5 %; HCT - HEMATOCRIT 44.5 % (37.0-47.0); LYMPHOCYTES % (AUTO) 22.1 %; MEAN CORPUSCULAR HGB CONC 29.2 g/dL (32.0-36.0); MEAN CORPUSCULAR VOLUME 85.7 fL (81.0-99.0); NEUTROPHILS % (AUTO) 65.1 %; PLT - PLATELET COUNT 474 10^3/uL (130-450); RED BLOOD COUNT 5.19 10^6/uL (4.20-5.40); RED CELL DISTRIBUTION WIDTH 15.9 % (12.0-15.0)
[2020-05-26 12:10] LABS: ESTIMATED AVERAGE GLUCOSE 117 mg/dL (70-100); HEMOGLOBIN A1c% 5.7 % (4.27-6.07)
[2020-05-26 12:17] LABS: SLIDE REVIEW? Indicated
[2020-05-26 12:21] LABS: EOSINOPHILS # (MANUAL) 0.3 10^3/uL (0-0.7); LYMPHOCYTES # (MANUAL) 2.6 10^3/uL (1.5-3.5); LYMPHOCYTES % (MANUAL) 6 %; MONOCYTES # (MANUAL) 0.9 10^3/uL (0.0-1.0); NEUTROPHILS # (MANUAL) 7.2 10^3/uL (1.5-6.6); REACTIVE LYMPHS % (MANUAL) 18 %
[2020-05-26 12:22] LABS: DIFFERENTIAL COMMENT MANUAL DIFFERENTIAL; RBC MORPHOLOGY (MULTIPLE) 2+ ANISOCYTOSIS (NORMAL)
[2020-05-26 12:23] LABS: THYROID STIMULATING HORMONE 1.65 uIU/mL (0.34-5.60)
[2020-05-26 12:28] LABS: ALBUMIN 4.1 g/dL (3.2-5.5); ALBUMIN/GLOBULIN RATIO 1.1 (1.0-2.2); ALKALINE PHOSPHATASE 81 IU/L (42-121); ALT ALANINE AMINOTRANSFERASE 21 IU/L (10-60); AST ASPARTATE AMINOTRANSFERASE 19 IU/L (10-42); BILIRUBIN,TOTAL 0.5 mg/dL (0.2-1.0); BUN - BLOOD UREA NITROGEN 9 mg/dL (6-20); CARBON DIOXIDE - CO2 28 mmol/L (21-32); CHLORIDE 99 mmol/L (101-111); CHOL/HDL RATIO 3.7 (<4.4); CHOLESTEROL 179 mg/dL; CREATININE 0.6 mg/dL (0.4-1.0); GFR - MDRD 100 (>89); GLUCOSE 93 mg/dL (70-100); HDL CHOLESTEROL 49 mg/dL; LDL CHOLESTEROL,CALCULATED 87 mg/dL; LDL/HDL RATIO 1.8 (<4.4); POTASSIUM 4.8 mmol/L (3.5-5.0); SODIUM 139 mmol/L (135-145); TRIGLYCERIDES 217 mg/dL; VLDL CHOLESTEROL 43 mg/dL
== END 2020-05-26 23:59 | disposition home or self-care (01) ==
LOC: LAB.WCP 08:00
PROVIDERS: ATTEND Family Medicine
DX: D64.9 Anemia, unspecified (principal); E11.9 Type 2 diabetes mellitus without complications; D72.829 Elevated white blood cell count, unspecified
CPT/HCPCS: 36415; 80053; 80061; 83036; 83721; 84443; 85025

== ENCOUNTER 2020-11-18 08:02 | Outpatient (CLI) | payer MEDICARE, OTHER ==
[2020-11-18 12:15] LABS: ALBUMIN 4.2 g/dL (3.2-5.5); ALBUMIN/GLOBULIN RATIO 1.2 (1.0-2.2); BILIRUBIN,TOTAL 0.6 mg/dL (0.2-1.0); CALCIUM 9.4 mg/dL (8.5-10.3); CREATININE 0.7 mg/dL (0.4-1.0); POTASSIUM 4.4 mmol/L (3.5-5.0); TOTAL PROTEIN 7.8 g/dL (6.7-8.2)
[2020-11-18 13:08] LABS: ESTIMATED AVERAGE GLUCOSE 108 mg/dL (70-100); HEMOGLOBIN A1c% 5.4 % (4.27-6.07)
== END 2020-11-18 23:59 | disposition home or self-care (01) ==
LOC: LAB.WCP 08:02
PROVIDERS: ATTEND Family Medicine
DX: E11.9 Type 2 diabetes mellitus without complications (principal)
CPT/HCPCS: 36415; 80053; 83036

== ENCOUNTER 2020-12-08 09:28 | Outpatient (CLI) | payer MEDICARE, OTHER ==
--- NOTE | 2020-12-09 10:07 | Mammography Report ---
BILATERAL DIGITAL SCREENING MAMMOGRAM 3D/2D: 12/08/2020 CLINICAL: Routine screening. Comparison is made to exams dated: 07/16/2017 mammogram, 11/03/2015 mammogram, 08/24/2014 mammogram, and 03/24/2013 mammogram - [facility]. The tissue of both breasts is heterogeneously d ense. This may lower the sensitivity of mammography. No significant masses, calcifications, or other findings are seen in either breast. There has been no significant interval change. IMPRESSION: NEGATIVE There is no mammographic evidence of malignancy. A 1 year screening mammogram is recommended. This exam was interpreted at Station ID: [id number]. NOTE: For mammograms, a report in lay terms will be sent to the patient. Approximately 15% of breast malignancies will not be visualized mammographically. In the management of a palpable breast mass, a negative mammogram must not discourage biopsy of a clinically suspicious lesion. Electronically Signed By: Golden Delaney M.D. slc/penrad:12/08/2020 14:32:43 ACR BI-RADS Category 1: Negative 3341F PARENCHYMAL PATTERN: (D) - The breast(s) demonstrate(s) heterogeneously dense fibroglandular trent cartwright. BI-RADS CATEGORY: (1) - 1 RECOMMENDATION: (ANNUAL) - Recommend routine annual screening mammography. [id number] 1 year screening LATERALITY: (B)
== END 2020-12-08 09:29 | disposition home or self-care (01) ==
LOC: DI 09:28
DX: Z12.31 Encounter for screening mammogram for malignant neoplasm of breast (principal)

== ENCOUNTER 2020-12-08 09:30 | Outpatient (CLI) | payer MEDICARE, OTHER ==
--- NOTE | 2020-12-13 15:48 | DEXA Report ---
PROCEDURE: Dexa Spine and/or Hip INDICATIONS: OSTEOPENIA TECHNIQUE: Dual energy x-ray absorptiometry (DXA) was performed on a [employer] System. Regions measur ed are the AP Spine, femoral neck, and if needed forearm. COMPARISON: DEXA 07/16/2017 FINDINGS: Lumbar Spine: Bone Mineral Density 0.910 g/cm/cm,T score -2.3, compared to -2.6 Left Hip: Bone Mineral Density 0.754 g/cm/cm,T score -2.0, compared to -2.2 Left Femoral Neck: Bone Mineral Density 0.620 g/cm/cm, T score -3.0, compared to -3.6 (T score greater or equal to -1.0: NORMAL) (T score from -1.1 to -2.4: OSTEOPENIA) (T score less than or equal to -2.5 to: OSTEOPOROSIS) Impression: Osteoporosis within the left femoral neck, improved compared to prior exam. Persistent os teopenia within the spine and left hip mildly improved compared to prior exam. Patients with diagnosis of osteoporosis or osteopenia should have regular bone mineral density assess ment. For those eligible for Medicare, routine testing is allowed once every 2 years. Testing frequ ency can be increased for patients who have rapidly progressing disease or for those who are receivin g medical therapy to restore bone mass. Reviewed by: Araceli Gallardo MD on 12/13/2020 3:47 PM PDT Approved by: Araceli Gallardo MD on 12/13/2020 3:47 PM PDT Station ID: [id number]
== END 2020-12-08 09:31 | disposition home or self-care (01) ==
LOC: DI 09:30
PROVIDERS: ATTEND Family Medicine
DX: M81.0 Age-related osteoporosis without current pathological fracture (principal)

== ENCOUNTER 2022-05-01 08:23 | Outpatient (CLI) | payer MEDICARE, OTHER ==
[2022-05-01 08:41] LABS: BASOPHILS # (AUTO) 0.1 10^3/uL (0.0-0.1); BASOPHILS % (AUTO) 0.7 %; EOSINOPHILS # (AUTO) 0.2 10^3/uL (0.0-0.7); EOSINOPHILS % (AUTO) 1.9 %; HCT - HEMATOCRIT 46.5 % (37.0-47.0); HGB - HEMOGLOBIN 14.2 g/dL (12.0-16.0); LYMPHOCYTES # (AUTO) 2.3 10^3/uL (1.5-3.5); LYMPHOCYTES % (AUTO) 21.9 %; MEAN CORPUSCULAR HEMOGLOBIN 25.1 pg (27.0-31.0); MEAN CORPUSCULAR HGB CONC 30.5 g/dL (32.0-36.0); MEAN CORPUSCULAR VOLUME 82.3 fL (81.0-99.0); MEAN PLATELET VOLUME 9.5 fL (7.9-10.8); MONOCYTES % (AUTO) 9.1 %; NEUTROPHILS # (AUTO) 7.1 10^3/uL (1.5-6.6); NEUTROPHILS % (AUTO) 66.1 %; PLT - PLATELET COUNT 431 10^3/uL (130-450); RED BLOOD COUNT 5.65 10^6/uL (4.20-5.40); RED CELL DISTRIBUTION WIDTH 15.3 % (12.0-15.0); WHITE BLOOD COUNT 10.7 x10^3/uL (4.8-10.8)
[2022-05-01 09:01] LABS: % IRON SATURATION 6 % (20-50); ALBUMIN 4.1 g/dL (3.2-5.5); ALBUMIN/GLOBULIN RATIO 1.1 (1.0-2.2); ALKALINE PHOSPHATASE 70 IU/L (42-121); ALT ALANINE AMINOTRANSFERASE 16 IU/L (10-60); AST ASPARTATE AMINOTRANSFERASE 18 IU/L (10-42); BILIRUBIN,TOTAL < 0.2 mg/dL (0.2-1.0); BUN - BLOOD UREA NITROGEN 9 mg/dL (6-20); CALCIUM 9.3 mg/dL (8.5-10.3); CARBON DIOXIDE - CO2 27 mmol/L (21-32); CHLORIDE 97 mmol/L (101-111); CHOL/HDL RATIO 3.5 (<4.4); CHOLESTEROL 189 mg/dL; CREATININE 0.9 mg/dL (0.4-1.0); GFR - MDRD 62 (>89); GLUCOSE 105 mg/dL (70-100); HDL CHOLESTEROL 54 mg/dL; IRON 31 ug/dL (28-170); LDL CHOLESTEROL,CALCULATED 94 mg/dL; LDL/HDL RATIO 1.7 (<4.4); POTASSIUM 4.5 mmol/L (3.5-5.0); SODIUM 134 mmol/L (135-145); TOTAL IRON BINDING CAPACITY 493 ug/dL (250-450); TOTAL PROTEIN 7.9 g/dL (6.7-8.2); TRANSFERRIN 352 mg/dL (192-382); TRIGLYCERIDES 206 mg/dL; VLDL CHOLESTEROL 41 mg/dL
[2022-05-01 09:10] LABS: CREATININE,URINE 159.3 mg/dL; MICROALBUM/CREATININE RATIO,UR 2.5 ug/mg (<30.0); MICROALBUMIN,URINE 0.4 mg/dL (0-300.0)
[2022-05-01 09:13] LABS: FERRITIN 15.1 ng/mL (11.0-306.8)
[2022-05-01 12:29] LABS: ESTIMATED AVERAGE GLUCOSE 117 mg/dL (70-100); HEMOGLOBIN A1c% 5.7 % (4.27-6.07)
== END 2022-05-01 08:24 | disposition home or self-care (01) ==
LOC: LAB 08:23
PROVIDERS: ATTEND Family Medicine
DX: E11.9 Type 2 diabetes mellitus without complications (principal); D64.9 Anemia, unspecified
CPT/HCPCS: 36415; 80053; 80061; 82043; 82570; 82607; 82728; 83036; 83540; 83721; 84466; 85025

== ENCOUNTER 2023-04-25 09:55 | Outpatient (CLI) | payer MEDICARE, OTHER ==
[2023-04-25 11:39] LABS: BASOPHILS # (AUTO) 0.1 10^3/uL (0.0-0.1); BASOPHILS % (AUTO) 0.5 %; EOSINOPHILS # (AUTO) 0.2 10^3/uL (0.0-0.7); EOSINOPHILS % (AUTO) 1.7 %; HCT - HEMATOCRIT 47.1 % (37.0-47.0); HGB - HEMOGLOBIN 13.8 g/dL (12.0-16.0); LYMPHOCYTES # (AUTO) 1.7 10^3/uL (1.5-3.5); MEAN CORPUSCULAR HEMOGLOBIN 22.7 pg (27.0-31.0); MEAN CORPUSCULAR HGB CONC 29.3 g/dL (32.0-36.0); MEAN CORPUSCULAR VOLUME 77.3 fL (81.0-99.0); MONOCYTES # (AUTO) 0.8 10^3/uL (0.0-1.0); MONOCYTES % (AUTO) 8.9 %; NEUTROPHILS # (AUTO) 6.5 10^3/uL (1.5-6.6); NEUTROPHILS % (AUTO) 70.5 %; PLT - PLATELET COUNT 403 10^3/uL (130-450); RED BLOOD COUNT 6.09 10^6/uL (4.20-5.40); RED CELL DISTRIBUTION WIDTH 21.1 % (12.0-15.0); WHITE BLOOD COUNT 9.2 x10^3/uL (4.8-10.8)
[2023-04-25 11:43] LABS: SLIDE REVIEW? Indicated
[2023-04-25 11:47] LABS: ESTIMATED AVERAGE GLUCOSE 114 mg/dL (70-100); HEMOGLOBIN A1c% 5.6 % (4.27-6.07)
[2023-04-25 12:01] LABS: PLATELET ESTIMATE, MANUAL NORMAL (130-450,000) (NORMAL); PLATELET MORPHOLOGY NORMAL APPEARANCE (NORMAL); RBC MORPHOLOGY (MULTIPLE) 2+ ANISOCYTOSIS (NORMAL)
[2023-04-25 12:53] LABS: ALBUMIN 4.4 g/dL (3.2-5.5); ALBUMIN/GLOBULIN RATIO 1.3 (1.0-2.2); ALKALINE PHOSPHATASE 84 IU/L (42-121); ALT ALANINE AMINOTRANSFERASE 10 IU/L (10-60); AST ASPARTATE AMINOTRANSFERASE 11 IU/L (10-42); BILIRUBIN,TOTAL 0.4 mg/dL (0.2-1.0); BUN - BLOOD UREA NITROGEN 9 mg/dL (6-20); CALCIUM 9.8 mg/dL (8.5-10.3); CARBON DIOXIDE - CO2 27 mmol/L (21-32); CHLORIDE 100 mmol/L (101-111); CHOL/HDL RATIO 3.2 (<4.4); CHOLESTEROL 168 mg/dL; CREATININE 0.7 mg/dL (0.6-1.3); GFR - MDRD 83 (>89); GLUCOSE 93 mg/dL (74-104); HDL CHOLESTEROL 52 mg/dL; LDL CHOLESTEROL,CALCULATED 71 mg/dL; LDL/HDL RATIO 1.4 (<4.4); POTASSIUM 4.2 mmol/L (3.5-4.5); SODIUM 134 mmol/L (135-145); TOTAL PROTEIN 7.9 g/dL (6.4-8.9); TRIGLYCERIDES 224 mg/dL (48-352); VLDL CHOLESTEROL 45 mg/dL
== END 2023-04-25 09:56 | disposition home or self-care (01) ==
LOC: LAB.N 09:55
PROVIDERS: ATTEND Physician Assistant
DX: E11.9 Type 2 diabetes mellitus without complications (principal); E78.5 Hyperlipidemia, unspecified
CPT/HCPCS: 36415; 80053; 80061; 83036; 83721; 84443; 85025

== ENCOUNTER 2023-05-16 07:52 | Outpatient (CLI) | payer MEDICARE, OTHER ==
[2023-05-16] MEDS ORDERED: GADOTERATE MEGLUMINE 7.5 MMOL/15 ML VIAL ONE (08:00)
--- NOTE | 2023-05-16 12:01 | MRI Report ---
PROCEDURE: MRI brain with and without contrast INDICATIONS: 72-year-old female with memory deficit and history of lung cancer TECHNIQUE: Multiplanar multisequential MR images of the brain were obtained before and after intrave nous contrast administration. COMPARISON: None. FINDINGS: CSF spaces: Basal cisterns are patent. No extra-axial fluid collections. Ventricles are normal in size and shape. Brain: No midline shift. No intracranial bleeds or masses. No abnormal intracranial enhancement. The brainstem appears normal. Diffusion-weighted images demonstrate no acute infarct. Normal intrav ascular flow voids are present. Moderate atrophy and mild white matter chronic ischemic change Skull and face: Calvarial marrow is normal in signal. Orbits appear normal. Sinuses: Sinuses and mastoids appear clear. IMPRESSION: Atrophy and chronic ischemic change without acute infarct, hemorrhage or mass lesion. No evidence of metastatic disease. Reviewed by: Efrani Holden MD on 05/16/2023 11:00 AM LETICIA Approved by: Efrain Holden MD on 05/16/2023 11:00 AM [place]MISTY Station ID: [id number]
[2023-05-16] MEDS: GADOTERATE MEGLUMINE 7.5 MMOL/15 ML VIAL IVP ONE (17:24)
== END 2023-05-16 07:53 | disposition home or self-care (01) ==
LOC: DI 07:52
PROVIDERS: ATTEND Physician Assistant
DX: G31.9 Degenerative disease of nervous system, unspecified (principal); I67.82 Cerebral ischemia; C34.90 Malignant neoplasm of unspecified part of unspecified bronchus or lung